=== PATIENT | male | born 1930 | race African-American/Black ===

== ENCOUNTER 2017-06-08 00:49 | Emergency (ER) | payer MEDICARE, OTHER ==
[2017-06-08 01:20] VITALS: BMI 33.3
--- NOTE | 2017-06-08 01:57 | PDOC ---
History of Present Illness - General Chief Complaint: Pain Stated Complaint: BILATERAL LEG PAIN Time Seen by Provider: 06/08/17 01:32 - History of Present Illness Initial Comments: 06/08/17 01:50 Pt is an 87 y/o M with PMH HTN, DM who presents to ED with b/l foot pain. Pt states that the pain started suddenly this afternoon and hurts from the ankles down in both feet equally. He was not able to define the character of the pain, but he states that it has been constant since it began this afternoon. It does not radiate. In the ED pt suddenly became nauseated and began vomiting yellow-green liquid. He states he had no nausea today until a moment before he vomited. Pt states he was discharged from [facility] 2 days ago after he had been admitted for 6-7 days for high blood pressure. Pt is unable to provide any other details regarding his admission. Denies fever, chills, recent travel, sick contacts, unusual food consumption. Admits to some mild dizziness. Past History - Past Medical History Allergies/Adverse Reactions: Allergies Allergy/AdvReac Type Severity Reaction Status Date / Time No Known Allergies Allergy Verified 06/08/17 01:49 Home Medications: Ambulatory Orders Prednisone [Deltasone -] 15 mg PO BID 4 Days #8 tablet 06/08/17 COPD: No Diabetes: Yes HTN: Yes - Surgical History Abdominal Surgery: Yes (inguinal hernia repair) - Suicide/Smoking/Psychosocial Hx Smoking History: Never smoked Have you smoked in the past 12 months: No Information on smoking cessation initiated: No Hx Alcohol Use: No Drug/Substance Use Hx: No Substance Use Type: None Review of Systems - Review of Systems Able to Perform ROS?: Yes Is the patient limited Slovenian proficient: No Constitutional: Yes: Symptoms Reported. No: Chills, Fever HEENTM: Yes: Symptoms Reported, Cataracts (s/p surg on L. R surg pending). No: Blurred Vision Respiratory: Yes: Symptoms reported. No: Cough, Shortness of Breath, Productive cough Cardiac (ROS): Yes: Symptoms Reported. No: Chest Pain, Edema ABD/GI: Yes: Symptoms Reported, Nausea, Vomiting (acute onset in ED during interview). No: Abdominal Distended, Diarrhea : Yes: Symptoms Reported. No: Discharge Musculoskeletal: Yes: Symptoms Reported, Joint Pain (severe lateral MTP pain b/l ) *Physical Exam - Vital Signs Last Vital Signs Temp Pulse Resp BP Pulse Ox 99.3 F 99 H 18 158/72 99 06/08/17 00:49 06/08/17 00:49 06/08/17 00:49 06/08/17 00:49 06/08/17 00:49 - Physical Exam General Appearance: Yes: Nourished, Appropriately Dressed, Apparent Distress HEENT: positive: EOMI, ESTEFANÍA, Normal ENT Inspection Neck: positive: Supple. negative: Tender, Carotid bruit Respiratory/Chest: positive: Lungs Clear, Normal Breath Sounds. negative: Chest Tender, Respiratory Distress Cardiovascular: positive: Regular Rhythm, Regular Rate Vascular Pulses: Dorsalis-Pedis (R): 1+, Doralis-Pedis (L): 1+ Gastrointestinal/Abdominal: positive: Normal Bowel Sounds, Soft. negative: Tender, Flat (obese), Organomegaly, Distended Extremity: positive: Normal Capillary Refill. negative: Pedal Edema, Calf Tenderness (Brenner neg), Erythema, Inflammation Integumentary: positive: Normal Color, Dry, Warm Neurologic: positive: Fully Oriented, Alert, Normal Mood/Affect ED Treatment Course - LABORATORY CBC & Chemistry Diagram: 06/08/17 03:49 06/08/17 05:30 Medical Decision Making - Medical Decision Making 06/08/17 01:57 Pt is an 87 y/o M who presented to ED with b/l intense foot pain, which came about suddenly this afternoon. Pain is localized to the lateral aspect of the TMT joint of the 4th and 5th toes. Pt also developed nausea and vomiting in the ED. -U/S legs -CBC -CMP -Mg -Uric Acid -Toradol 06/08/17 03:09 U/S done. Pending official read. 06/08/17 04:12 Pt resting comfortably in bed 06/08/17 05:49 Pt still sleeping comfortably *DC/Admit/Observation/Transfer Diagnosis at time of Disposition: Gout - Discharge Dispostion Disposition: HOME - Prescriptions Prescriptions: Prednisone [Deltasone -] 15 mg PO BID 4 Days #8 tablet - Referrals Referrals: Chandni Syed [Primary Care Provider] - - Patient Instructions Printed Discharge Instructions: Gout (Alternative Therapy), DI for Gout, Higher Vitamin C Intake Associated With Lower Risk of Gout Additional Instructions: Please follow up with your primary physician within 2-3 days. Come back to the ER for any new, worsening or concerning symptom. - Post Discharge Activity
[2017-06-08] MEDS ORDERED: KETOROLAC TROMETHAMINE 30 MG/1 ML VIAL IVPUSH ONE (03:20)
[2017-06-08 03:56] LABS: BASO # 0.1 # (0.1-1); BASO % 0.7 % (0-2.0); EOS % 0.3 % (0-4.5); MCH 26.4 pg (25.7-33.7); MCHC 31.7 g/dl (32.0-35.9); MEAN CELL VOLUME 83.2 fl (80-96); MEAN PLT VOLUME 8.8 fl (7.5-11.1); MONO # 1.3 # (3.8-10.2); NEUT # 7.6 # (42.8-82.8); NEUT % 75.7 % (42.8-82.8); PLATELET COUNT 284 K/MM3 (134-434); RDW 15.7 % (11.9-15.9); WHITE BLOOD COUNT 10.1 K/mm3 (4.0-10.0)
[2017-06-08] MEDS ORDERED: KETOROLAC TROMETHAMINE 30 MG/1 ML VIAL ONE (03:57)
[2017-06-08 06:12] LABS: MAGNESIUM 2.3 mg/dL (1.8-2.4); PHOSPHOROUS 3.5 mg/dL (2.5-4.9)
[2017-06-08 06:15] LABS: ALBUMIN 2.9 g/dl (3.4-5.0); ANION GAP 11 (8-16); BILIRUBIN,TOTAL 0.4 mg/dL (0.2-1.0); CALCIUM 8.4 mg/dL (8.5-10.1); CO2 23 mmol/L (21-32); CREATININE 1.5 mg/dL (0.7-1.3); GLUCOSE,RANDOM 145 mg/dL (74-106); SGOT/AST 8 U/L (15-37); SGPT/ALT 9 U/L (12-78)
[2017-06-08 06:16] LABS: ALK PHOS 48 U/L (45-117)
[2017-06-08 07:19] VITALS: PULSE 86
--- NOTE | 2017-06-08 08:21 | PDOC ---
*Physical Exam - Vital Signs Last Vital Signs Temp Pulse Resp BP Pulse Ox 99.3 F 86 19 138/76 99 06/08/17 00:49 06/08/17 07:18 06/08/17 07:18 06/08/17 07:18 06/08/17 00:49 ED Treatment Course - LABORATORY CBC & Chemistry Diagram: 06/08/17 03:49 06/08/17 05:30 - ADDITIONAL ORDERS Additional order review: Laboratory Results 06/08/17 06/08/17 06/08/17 07:18 05:30 05:30 Sodium 140 Potassium 4.1 Chloride 106 Carbon Dioxide 23 Anion Gap 11 BUN 22 H Creatinine 1.5 H Creat Clearance w eGFR 44.48 Random Glucose 145 H Uric Acid 7.3 H Calcium 8.4 L Phosphorus 3.5 Magnesium 2.3 Total Bilirubin 0.4 AST 8 L ALT 9 L Alkaline Phosphatase 48 Total Protein 7.0 Albumin 2.9 L 06/08/17 03:49 Sodium Cancelled Potassium Cancelled Chloride Cancelled Carbon Dioxide Cancelled Anion Gap Cancelled BUN Cancelled Creatinine Cancelled Creat Clearance w eGFR Cancelled Random Glucose Cancelled Uric Acid Cancelled Calcium Cancelled Phosphorus Magnesium Cancelled Total Bilirubin Cancelled AST Cancelled ALT Cancelled Alkaline Phosphatase Cancelled Total Protein Cancelled Albumin Cancelled 06/08/17 03:49 RBC 4.02 MCV 83.2 MCHC 31.7 L RDW 15.7 MPV 8.8 Neutrophils % 75.7 Lymphocytes % 9.9 Monocytes % 13.4 H Eosinophils % 0.3 Basophils % 0.7 - Medications Given in the ED: ED Medications Discontinued Medications Generic Name Dose Route Start Last Admin Trade Name Vandana PRN Reason Stop Dose Admin Ketorolac Tromethamine 30 mg 06/08/17 03:20 06/08/17 04:00 Toradol Injection - IVPUSH 06/08/17 03:21 30 mg ONCE ONE Administration *DC/Admit/Observation/Transfer Diagnosis at time of Disposition: Gout - Discharge Dispostion Disposition: HOME Admit: No - Prescriptions Prescriptions: Prednisone [Deltasone -] 15 mg PO BID 4 Days #8 tablet - Referrals Referrals: Chandni Syed [Primary Care Provider] - - Patient Instructions Printed Discharge Instructions: Higher Vitamin C Intake Associated With Lower Risk of Gout, Gout (Alternative Therapy), DI for Gout Additional Instructions: Please follow up with your primary physician within 2-3 days. Come back to the ER for any new, worsening or concerning symptom. - Post Discharge Activity
[2017-06-08 09:28] VITALS: BP 130/67; TEMP 97.7
== END 2017-06-08 09:23 | disposition home or self-care (01) ==
LOC: JER 00:49
PROC: 3E0333Z Introduction of Anti-inflammatory into Peripheral Vein, Percutaneous Approach (ICD-10-PCS; principal; 2017-06-08)
DX: M10.9 Gout, unspecified (principal); I10 Essential (primary) hypertension; E11.9 Type 2 diabetes mellitus without complications
CPT/HCPCS: 36415; 80053; 83735; 84100; 84550; 85025; 93970-TC; 99282-25